=== PATIENT | female | born 1945 | race Caucasian/White ===

== ENCOUNTER 2017-01-17 17:05 | Inpatient (IN) | payer OTHER ==
[~2017-01-17] VITALS: Ht 160 cm; Wt 56.7 kg
--- NOTE | ~2017-01-17 | CNG ---
[facility] [place] [address] CYTO-NONGYN REPORT PROCEDURE Name: CRISTAL WARE Room #: 307-P DIS IN M.R.#: [id number] Admission: 01/17/17 Date of : 47 Discharge: 01/19/17 Report #: [id number] Path Case #: [id number] CYTOPATHOLOGY REPORT COLLECTION DATE: 01/18/2017 RECEIVED DATE: 01/19/2017 SUBMITTING PHYS: Dr. Dixon Johnson OTHER PHYS: Dr. Giorgi Crane CLINICAL HISTORY: UTI, AMS, Leukocytosis, Lung CA SPECIMEN(S) RECEIVED: A.Sputum * * * * * * * * * * * * FINAL DIAGNOSIS: A. Sputum: - No malignant cells identified. Pulmonary macrophages are present along with squamous cells and inflammatory cells in a background of debris. PATHOLOGIST: Rosa Maria Malcolm M.D. REPORT ELECTRONICALLY SIGNED BY: Rosa Maria Malcolm M.D. DATE/TIME: 01/20/2017 16:24 * * * * * * * * * * * * GROSS PATHOLOGY: A. Sputum: The specimen is submitted unfixed, labeled "Cristal Ware". Received by the Cytology Department is one mL of cloudy colorless fluid. One ThinPrep slide was prepared. (mm 01.19.2017) PLASTIC STRAIGHTENING ROLL OPERATOR(S): HENRIK Quach([facility]) INITIAL CPT CODE(S): A; 92774 Professional services performed by [facility] at [facility] [address], [place] [address] Technical services performed by [facility] at [address] [place] [address]., [address], [place] [address]. [facility] [address] [place] [address], [facility] [address] [place] [address] PHONE: [phone] [facility] [address] [place] [address] CYTO-NONGYN REPORT PROCEDURE Name: BERHANE WARELA Room #: 307-P DIS IN M.R.#: [id number] Admission: 01/17/17 Date of : 47 Discharge: 01/19/17 Report #: [id number] Path Case #: [id number] DIRECTOR: Jeremie Tavarez M.D. * * * END OF REPORT * * *
--- NOTE | ~2017-01-17 | S ---
[facility] [place] [address] SURGICAL PATH RPT PROCEDURE Name: CRISTAL WARE Room #: 307-P DIS IN M.R.#: [id number] Admission: 01/17/17 Date of : 47 Discharge: 01/19/17 Report #: [id number] Path Case #: [id number] PATHOLOGY REPORT COLLECTION DATE: 01/19/2017 RECEIVED DATE: 01/20/2017 SUBMITTING PHYS: Dr. Giorgi Crane OTHER PHYS: Dr. Jose Miguel Toussaint SPECIMEN(S) RECEIVED: A.Left adrenal mass * * * * * * * * * * * * FINAL DIAGNOSIS: Left adrenal mass, needle core biopsy: - METASTATIC ADENOCARCINOMA, FAVOR LUNG ORIGIN. (PLEASE SEE COMMENT) COMMENT: Examination shows a gland forming malignancy. Adrenal gland parenchyma (cortex or medulla) is not present in this sample. Immunohistochemical stains are performed based on the history of lung mass. (Block A1) CK7: strong membranous reactivity present CK20: non-reactive TTF-1: rare cells showing strong nuclear reactivity WT-1: non-reactive (high background staining) CDX-2: non-reactive ER: non-reactive The non-reactive immunohistochemical stains argue against a gastrointestinal origin or Mullerian origin for this neoplasm. The tumor most likely represents a metastatic adenocarcinoma of lung origin. Please correlate clinically. Co-review: Dr. Janet Haines Findings are telephoned to Dr. Norbert Massey's nurse at 10:35 a.m. on 01/24/17. (IUV:mgr; 01/24/2017) PATHOLOGIST: Rosa Maria Malcolm M.D. REPORT ELECTRONICALLY SIGNED BY: Rosa Maria Malcolm M.D. DATE/TIME: 01/24/2017 16:16 * * * * * * * * * * * * GROSS PATHOLOGY: Received in formalin labeled "Cristal Ware, left adrenal mass," are 5 distinct needle cores of crowe soft tissue ranging from 0.[address] [address] SURGICAL PATH RPT PROCEDURE Name: CRISTAL WARE Room #: [address] [place] [address] IN M.R.#: [id number] Admission: 01/17/17 Date of : 47 Discharge: 01/19/17 Report #: [id number] Path Case #: [id number] 1.5 cm in length, which are submitted entirely in cassette A1. (SNA; 01/20/2017) CLINICAL HISTORY: Adrenal mass INITIAL CPT CODE(S): A; 09003, 78633, 10941, 11205, 31492, 22409, 77637 Professional services performed by [facility] at [address] , [place] [address] Technical services performed by [facility] at [address] [place] [address], [facility] [address], [place] [address]. [facility] [address] [place] [address] PHONE: [phone] DIRECTOR: Jeremie Tavarez M.D. * * * END OF REPORT * * *
--- NOTE | ~2017-01-17 | EKG ---
[address] [place] [address] ELECTROCARDIOGRAM REPORT Name: CRISTAL WARE Room #: 307-P ADM IN M.R.#: [id number] Admission: 01/17/17 Attend Phys: Andrew Ordonez MD Discharge: Date of : 47 Report #: [id number] THIS REPORT FOR: //name// [facility] ED Test Date: 2017-01-17 Test Time: 17:55:39 Pat Name: CRISTAL WARE Department: Room: [facility] Gender: F Financial Services Officer: [id number] : 1945 Requested By: Geri Vazquez Order Number: [id number] MD: David Ruiz Measurements Intervals [place] Rate: 108 P: 76 IL: 151 QRS: 59 QRSD: 84 T: 63 QT: 315 QTc: 422 Interpretive Statements Sinus tachycardia Probable left atrial enlargement Probable anteroseptal infarct, old Baseline wander in lead(s) V1 Compared to ECG 02/25/2014 07:14:42 No significant change was found Electronically Signed On 01-18-2017 7:48:31 CDT by David Ruiz [email or web address] <ELECTRONICALLY SIGNED> By: David Ruiz MD, [facility] 01/18/17 0748 1755 1755 David Ruiz MD, [facility] /EPI
[~2017-01-17 17:05] MED LIST changes: -KEFLEX500 MG PO
[2017-01-17 17:06] VITALS: BP 119/73
[2017-01-17 18:13] LABS: HEMATOCRIT 40.7 % (37.0-47.0); HEMOGLOBIN 14.2 gm/dL (12.0-15.0); MANUAL DIFF YES; MCH 31.1 pg (26.0-34.0); MCHC 34.9 g/dL (28.0-37.0); PLATELET COUNT 471 thou/uL (150-400); RBC 4.57 mil/uL (4.20-5.00); RDW 13.3 % (10.5-14.5); WBC 13.4 thou/uL (4.0-11.0)
[2017-01-17 18:20] LABS: CALCIUM 9.9 mg/dL (8.5-10.1); CREATININE 0.8 mg/dL (0.6-1.0); POTASSIUM 4.4 mmol/L (3.5-5.1)
[2017-01-17 18:27] LABS: URINE BILIRUBIN 1+ (Negative); URINE BLOOD TRACE (Negative); URINE COLOR YELLOW; URINE GLUCOSE-RANDOM* NEGATIVE (Negative); URINE KETONES 2+ (Negative); URINE NITRITE NEGATIVE (Negative); URINE PROTEIN (DIPSTICK) NEGATIVE (Negative); URINE SPECIFIC GRAVITY <= 1.005 (1.003-1.035); URINE UROBILINOGEN 0.2 E.U./dl (0.2-1.0)
[2017-01-17 18:29] LABS: ICTOTEST (BILI CONFIRMATORY) Negative (Negative)
[2017-01-17 18:35] LABS: ABSOLUTE NEUTROPHILS 11.1 thou/uL (1.4-8.2); TOTAL CELL COUNT 100
[2017-01-17 18:45] LABS: CASTS None Seen /LPF (None Seen); SQUAMOUS 4-10 Moderate /LPF (0-3); URINE RBC 0-2 Rare /HPF (0-2); URINE WBC 6-15 Few /HPF (0-5)
[2017-01-17 18:46] LABS: CRYSTALS None Seen /LPF (None Seen)
[2017-01-17 19:55] VITALS: BP 155/77
[2017-01-17 20:05] VITALS: BP 148/74
[2017-01-18] VITALS: BP 152/82
[2017-01-18 04:37] LABS: HEMATOCRIT 40.3 % (37.0-47.0); HEMOGLOBIN 13.8 gm/dL (12.0-15.0); MCH 30.7 pg (26.0-34.0); MCHC 34.2 g/dL (28.0-37.0); MCV 89.6 fL (80.0-100.0); RBC 4.5 mil/uL (4.20-5.00); RDW 13.6 % (10.5-14.5); WBC 14.8 thou/uL (4.0-11.0)
[2017-01-18 04:53] LABS: CALCIUM 9.3 mg/dL (8.5-10.1); CREATININE 0.7 mg/dL (0.6-1.0); POTASSIUM 3.8 mmol/L (3.5-5.1)
[2017-01-18 08:07] VITALS: BP 151/70
[2017-01-18 10:56] LABS: APTT 27.3 Seconds (24.5-32.8); INR 1.1; PROTIME 11.4 Seconds (9.3-11.4)
[2017-01-18 15:40] VITALS: BP 139/68
[2017-01-18 19:50] VITALS: BP 128/78
[2017-01-19] VITALS (13 sets, daily range): BP systolic 132–154; BP diastolic 48–83
[2017-01-19 04:04] LABS: CALCIUM 8.4 mg/dL (8.5-10.1); CREATININE 0.6 mg/dL (0.6-1.0); POTASSIUM 3.1 mmol/L (3.5-5.1)
[2017-01-19 04:22] LABS: HEMATOCRIT 36.2 % (37.0-47.0); HEMOGLOBIN 12.1 gm/dL (12.0-15.0); MCH 30.3 pg (26.0-34.0); MCHC 33.4 g/dL (28.0-37.0); MCV 90.8 fL (80.0-100.0); RBC 3.99 mil/uL (4.20-5.00); RDW 13.6 % (10.5-14.5); WBC 11.3 thou/uL (4.0-11.0)
[2017-01-19] MEDS ORDERED: KEFLEX500 MG PO (14:39)
== END 2017-01-19 17:00 | disposition home or self-care (01) | DRG 871 ==
LOC: ER 17:05 → 3N 19:35 → EROBS 19:35 → 3N 19:55
PROVIDERS: Emergency Medicine; Hospitalist; Internal Medicine Hematology & Oncology; Nurse Practitioner Acute Care
PROC: 0GB23ZX Excision of Left Adrenal Gland, Percutaneous Approach, Diagnostic (ICD-10-PCS; principal; 2017-01-19)
DX: A41.9 Sepsis, unspecified organism (principal); G92 Toxic encephalopathy; N39.0 Urinary tract infection, site not specified; E87.1 Hypo-osmolality and hyponatremia; I10 Essential (primary) hypertension; E05.90 Thyrotoxicosis, unspecified without thyrotoxic crisis or storm; F32.9 Major depressive disorder, single episode, unspecified; F41.9 Anxiety disorder, unspecified; E78.00 Pure hypercholesterolemia, unspecified; F17.210 Nicotine dependence, cigarettes, uncomplicated; K90.0 Celiac disease; E78.5 Hyperlipidemia, unspecified; E27.9 Disorder of adrenal gland, unspecified; R91.8 Other nonspecific abnormal finding of lung field; Z79.899 Other long term (current) drug therapy; Z88.1 Allergy status to other antibiotic agents; Z88.6 Allergy status to analgesic agent; Z88.8 Allergy status to other drugs, medicaments and biological substances; Z80.8 Family history of malignant neoplasm of other organs or systems; Z82.5 Family history of asthma and other chronic lower respiratory diseases; Z82.49 Family history of ischemic heart disease and other diseases of the circulatory system; Z90.710 Acquired absence of both cervix and uterus; Z81.1 Family history of alcohol abuse and dependence
CPT/HCPCS: 10096

== ENCOUNTER → 2017-01-17 | Outpatient (CLI) | payer OTHER ==
[~2017-01-17] MED LIST: ATORVASTATIN CA40 MG PO; BENTYL20 MG PO; CIMETIDINE 400400 MG PO; DICLOFENAC SOD50 M1 PO; FLONASE 0.05%50 MCG NASAL; HYDROCHLOROTHIA25 M1 PO; KEFLEX500 MG PO; METHIMAZOLE5 MG PO; NORVASC10 MG PO; NORVASC5 MG PO; OMEPRAZOLE20 M1 PO; ONDANSETRON HCL4 M2 SUBLING; PRILOSEC40 MG PO; PROMS25 WY RECTAL; QUINAPRIL HCL20 MG PO; QUINU10 PD PO; REGLAN 10 MG TA10 MG PO; TIGAN300 MG PO; TRAMADOL 50 MG50 MG PO; XANAX 0.5 MG0.5 MG PO
== END ==
LOC: CAT 07:53
DX: E27.9 Disorder of adrenal gland, unspecified (principal); J92.9 Pleural plaque without asbestos

== ENCOUNTER 2017-04-05 04:36 | Inpatient (IN) | payer OTHER ==
[~2017-04-05] VITALS: Ht 165.1 cm; Wt 50.8 kg
--- NOTE | ~2017-04-05 | H ---
[facility] [place] [address] HISTORY AND PHYSICAL Name: CRISTAL WARE Room #: 436-P ADM IN M.R.#: [id number] Admission: 04/07/17 Attend Phys: Taco Garcia DO Discharge: Date of : 47 Report #: [id number] THIS REPORT FOR: //name// CC: Taco Lebron DATE OF SERVICE: 04/08/2017 ROOM NUMBER: 436-P. DIAGNOSIS: Stage IV adenocarcinoma of lung origin. HISTORY: Radiation Oncology consultation is requested by Dr. Jose Miguel Toussaint in this 71-year-old female with a recent diagnosis of stage IV adenocarcinoma of primary lung origin. She initially presented to the hospital earlier this summer with shortness of air, mental status changes and a urinary tract infection. A lung mass was noted on chest x-ray. CT scan revealed a large right upper lung mass, extending to the right hilum, with mediastinal lymphadenopathy as well as a large left adrenal mass. The left adrenal gland was biopsied on 01/19/2017 and found to be adenocarcinoma, favoring lung origin. The patient has seen Dr. Toussaint, and received her first cycle of chemotherapy -- Alimta, carboplatin and Keytruda 2 weeks ago. She began to experience increasing back pain around her midline which has rendered her bedridden for the past couple of weeks. The pain is a 10/10 without medication and not well-controlled. She also has been having difficulty with mental status side effects from pain medication, and the patient was admitted to the hospital for pain management as well as an inability to be home independently. A followup MRI of the brain revealed a 5 x 5 x 6 mm ring enhancing lesion in the right frontal lobe, 3 x 3 x 4 nodule within the inferior left cerebellar hemisphere, and 10 x 13 x 16 mm posterior paramedial right parietal lobe metastasis which had increased in size from her prior exam on 01/18/2017. In addition, CT of the spine revealed the right upper lobe mass and left adrenal gland mass. No definite lytic or sclerotic mass identified. However, MR of the lumbar spine revealed a soft tissue mass involving the posterior spinal muscles at L2, left-sided marrow replacement at L1 and a second area of replacement involving L5. Due to the findings in the paraspinal muscle, L1 and increasing brain metastasis, we are asked to see the patient at this time for discussion regarding radiation therapy. She currently describes her pain present 24/01. It is exacerbated by moving and is a 10+/10 without pain medication. It is reduced to a 5-6/10 with pain medication. Her most comfortable position is lying on her left side. She denies any radicular pain into her buttock or legs. She has generalized global weakness from lying in bed, but no specific muscle weakness. No sensory loss. PAST MEDICAL AND SURGICAL HISTORY: Hypertension, hyperthyroidism, depression, anxiety, hyperlipidemia, celiac sprue. [address] [address] HISTORY AND PHYSICAL Name: CRISTAL WARE Room #: 436-P [facility] IN M.R.#: [id number] Admission: 04/07/17 Attend Phys: Taco Garcia DO Discharge: Date of : 47 Report #: [id number] CURRENT MEDICATIONS: Please see chart. SOCIAL HISTORY: The patient has moved in with her daughter, Eliud. Her daughter does work full-time, Tuesday through Tuesday. She is alone for several hours per day. The patient is a former smoker. FAMILY HISTORY: Father, pancreatic cancer. REVIEW OF SYSTEMS: Twelve-point review of systems is reviewed and is otherwise negative. PHYSICAL EXAMINATION: VITAL SIGNS: Per chart. GENERAL: The patient is alert and oriented; lying on her left side, relatively comfortably in bed. She is able to answer questions appropriately. She is mildly confused. NECK: Without lymphadenopathy. LUNGS: Clear to auscultation without wheezes. CARDIOVASCULAR: Regular rate and rhythm without murmur. No premature beats. ABDOMEN: Soft, nontender. No masses or organomegaly. MUSCULOSKELETAL: Point tenderness over the upper lumbar region. NEUROLOGIC: Cranial nerves intact. She is able to move all 4 extremities. No sensory loss. Gait is not tested. SKIN: No unusual bruises or rashes. RADIOGRAPHIC DATA: Please see above, indicating results of MRI of her spine, noting a large tumor involving the left side of L1 with bony destruction and a smaller lesion involving the upper anterior L5 as well as the posterior left paraspinous tissue mass measuring 2.2 x 3.2 x 3.9 cm. MRI of the brain notes 3 enhancing lesions, 2 of which are new and 1 has increased in size, in the posterior right parietal lobe. RECOMMENDATIONS: Her main reason for admission is her uncontrolled pain, which correlates well with her L1 metastasis. PLAN: I would recommend palliative radiation therapy to L1. We would consider a hypofractionation, 800 cGy x 1 fraction to the spine and also consider SRS to the enlarging right parietal brain intracranial lesion. This would need to be done as an outpatient or in an inpatient facility that has radiation therapy available. We discussed the indications, risks, benefits, and side effects of radiation with the patient and her daughter. They will consider her options over the weekend and I will revisit this with them early next week. [address] [address] HISTORY AND PHYSICAL Name: CRISTAL WARE Room #: 436-P ADM IN M.R.#: [id number] Admission: 04/07/17 Attend Phys: Taco Garcia DO Discharge: Date of : 47 Report #: [id number] Thanks for the opportunity to see the patient in consultation. By: 1459 1605 Danni Saldana MD /abdoulaye
--- NOTE | ~2017-04-05 | EKG ---
[address] [place] [address] ELECTROCARDIOGRAM REPORT Name: CRISTAL WARE Room #: 447-P [facility]..#: [id number] Admission: 04/05/17 Attend Phys: Taco Garcia DO Discharge: Date of : 47 Report #: [id number] THIS REPORT FOR: //name// [facility] ED Test Date: 2017-04-05 Test Time: 04:42:53 Pat Name: CRISTAL WARE Department: Room: [facility] Gender: F Water Softener Servicer: MAURA : 1945 Requested By: Easton Bashir Order Number: [id number] MD: David Ruiz Measurements Intervals [place] Rate: 97 P: 92 [place]: 143 QRS: 74 QRSD: 88 T: 74 QT: 343 QTc: 436 Interpretive Statements Sinus rhythm Borderline repolarization abnormality Baseline wander in lead(s) V6 Compared to ECG 01/17/2017 17:55:39 Sinus tachycardia no longer present Electronically Signed On 04-05-2017 8:41:56 CDT by David Ruiz [email or web address] <ELECTRONICALLY SIGNED> By: David Ruiz MD, [facility] 04/05/17 0841 0442 044 David Ruiz MD, [facility] /EPI
--- NOTE | ~2017-04-05 | HC ---
[facility] [place] [address] CONSULTATION Name: CRISTAL WARE Room #: 447-P [facility] M.R.#: [id number] Admission: 04/05/17 Attend Phys: Taco Garcia DO Discharge: Date of : 47 Report #: [id number] THIS REPORT FOR: //name// CC: Aaliyah Smith MD HISTORY OF PRESENT ILLNESS: The patient is a 71-year-old female with a history of metastatic adenocarcinoma of the lung, who was diagnosed with a left adrenal biopsy on 01/19/2017. The tumor was nonreactive for ROS, ALK and EGFR. Also, BRAF and PD-L1 was less than 1%. A PET scan done on 02/02 had showed the hypermetabolic right upper lobe pulmonary mass as well as hypermetabolic precarinal lymph nodes and large hypermetabolic left adrenalin mass and also hypermetabolic nodule within the left lateral breast and also small hypermetabolic lesion on the left side of L1. The patient began chemotherapy with carboplatin, pembrolizumab and pemetrexed 2 weeks ago or about 03/18/2017. The patient comes in today for worsening pain over the last several weeks. She states back pain that is constant, it is worse, it is about mid ridge. She has not had any incontinence of stool or urine. She does state if she does not get to this bathroom fast, she can lose control, but she is aware that she has to go. She denies any change in bowels, any nausea, any vomiting, any fevers, any rash, any arm or leg swelling. Does have some trouble sleep because of the pain. Has been in-taking more pain pills. Her eating has been okay. She has been drinking okay also. She has not had any stumbling. She also has pain in the mid epigastric region. She states the pain is straight through in that area. PAST MEDICAL HISTORY: Notable for the nonsmall cell lung cancer, also UTI history, also hypertension, tobacco use, hypothyroidism, history of celiac sprue. Also note that she had some mental status changes, an MRI head in January was suggesting for a repeat scan in 6-8 weeks. Also, she has a history of GERD, hypertension and hyperlipidemia. MEDICATIONS: Medications at this time in the hospital currently include GI cocktail to see if this helps her GI pain. Docusate 100 b.i.d., famotidine 20 b.i.d., mag citrate daily as needed, zolpidem 5 mg at bedtime p.r.n. MiraLax daily, nitroglycerin sublingual p.r.n., IV fluids, Zofran p.r.n. PHYSICAL EXAMINATION: GENERAL: The patient appears her stated age. VITAL SIGNS: Height is 5 feet 5 or 165.1 cm, weight 120 pounds or 54.4 kilograms. Blood pressure 111/60, pulse 75, O2 sat 96, temperature afebrile at 98.2. MOOD: The patient is tired from not sleeping last night. She is able to answer [facility] [place] [address] CONSULTATION Name: CRISTAL WARE Room #: 447-P [facility] Osbaldo M.R.#: [id number] Admission: 04/05/17 Attend Phys: Taco Garcia, DO Discharge: Date of : 47 Report #: [id number] questions, appears to be a reliable historian. HEENT: Oral is clear without injection or masses. LUNGS: Appears to have good symmetric respirations. HEART: Appears regular rate. NECK: No enlarged lymph nodes in the supraclavicular, cervical range. BACK: The patient does have the back pain about T10 level that is slightly worse when you compress the back and also rub that, but also maybe the muscle tight over this. She also has a similar discomfort in the front of the epigastrium, but I think it is for the same pain. ABDOMEN: Feels fairly soft, does not feel distended or any masses. EXTREMITIES: Without clubbing or cyanosis, or perhaps some trace edema. LABORATORY DATA: Lab here shows a CBC with a white count of 3.7, hemoglobin 10, platelets 117. Coags normal. CMP: Albumin at 2.3, total protein 5.2. ALT 24, magnesium 1.7, AST 23. Glucose 114, sodium 130. Portable chest showed hyperexpansion with minor stranding. ASSESSMENT AND PLAN: 1. 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 Continue monitoring and surveillance. 2. Increasing back pain, may be related to either the adrenal mass enlarging or to L1 metastasis. No plans for an MRI spine, which seems appropriate to make sure this is not L1 expansion or new a metastasis since PET scan almost 2 months ago. Continue with pain meds as needed, may need to consider radiation therapy to adrenal if pain becomes major issue. 3. Hypertension. Meds per others. 4. Hyperlipidemia. Meds per others. 5. Hypothyroidism. Meds per others. 6. History of sprue. Defer to others. 7. Questionable MRI abnormality. We will probably need to repeat an MRI at some point to follow up on changes seen 2 months ago. We will follow with you. <ELECTRONICALLY SIGNED> By: Jose Miguel Toussaint MD 04/06/17 0703 0854 1116 Jose Miguel Toussaint MD /nt
--- NOTE | ~2017-04-05 | HC ---
[facility] [place] [address] CONSULTATION Name: CRISTAL WARE Room #: 436-P [facility] MPalmiraRPalmira#: [id number] Admission: 04/05/17 Attend Phys: Taco Garcia DO Discharge: Date of : 47 Report #: [id number] THIS REPORT FOR: //name// CC: Taco Lebron DATE OF SERVICE: 04/06/2017 HISTORY OF PRESENT ILLNESS: The patient is a 71-year-old white female with history of stage IV adenocarcinoma of the lung who completed her first round of chemotherapy approximately 2 weeks ago. The patient has had worsening lower extremity weakness. She indicates that over the past month or so, she has been unable to progressively ambulate and her daughter has been pushing her around in her 4-wheeled roller walker. With her worsening condition, she was admitted and workup has revealed vertebral metastasis to L1 and L5 as well as metastasis to the adrenal. No actual spinal cord encroachment. The patient is being followed by Oncology. We are seeing her in Rehabilitation Medicine consultation. PAST MEDICAL HISTORY: Includes the metastatic adenocarcinoma. She has history of hypertension, hyperthyroidism, depression, anxiety, high cholesterol, celiac sprue. PAST SURGICAL HISTORY: As noted above. FAMILY HISTORY: Father had pancreatic cancer. Father also had COPD, history of alcoholism. HABITS: The patient is a former tobacco user, 40-pack years. No history of alcohol abuse. MEDICATIONS: Please see the full medication listing. SOCIAL HISTORY: Lives in the house with her daughter. They have a stair glide. She apparently is alone about 5 hours a day. REVIEW OF SYSTEMS: Complains of back pain and has decreased tolerance for activity. No complaints of chest pain, shortness of breath or abdominal discomfort. PHYSICAL EXAMINATION: GENERAL: A 71-year-old white female in no obvious distress. She indicated she does not like to be pushed very much as far as any kind of therapies or activity. VITAL SIGNS: Last recorded temperature is 97.1, pulse 81, respirations 19, blood pressure 123/67. HEENT: Facies are symmetric. [address] [address] CONSULTATION Name: CRISTAL WARE Room #: 436-P [facility] M.R.#: [id number] Admission: 04/05/17 Attend Phys: Taco Garcia DO Discharge: Date of : 47 Report #: [id number] EXTREMITIES: She has functional range of motion of both upper extremities without obvious focal weakness. DTRs are trace to 1. Lower extremities. No obvious calf swelling. Functional range of motion, strength is probably at grade 3+/5 to 4-/5. DTRs are trace to 1. She is mod assist for bed mobility. Sit to stand is mod assist. Gait was 10 feet with the front wheeled walker. ASSESSMENT: A 71-year-old white female with the following problem list: 1. Metastatic stage 4 adenocarcinoma of the lung to the L1 and L5 vertebra. 2. 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 3. Low back pain with limited tolerance to activity. 4. Hypertension. 5. History of tobacco abuse. PLAN: Social service notes reviewed. Note that they are looking at nursing facility options, which would appear appropriate for this patient. She does not have good tolerance as far as therapies and does not want to be pushed. She made that quite clear to me today. I agree with checking regarding residential facility options within the patient's insurance. By: [id number] Mario Trujillo MD /PMT
[~2017-04-05 04:36] MED LIST changes: +KEFLEX500 MG PO
[2017-04-05 04:37] VITALS: BP 93/47
[2017-04-05] MEDS ORDERED: FOLIC ACID1 MG PO (04:55)
[2017-04-05] MEDS ORDERED: NORCO 5-325 TA1 EACH PO (04:56)
[2017-04-05] MEDS ORDERED: MIRALAX17 GM PO (04:57)
[2017-04-05] MEDS ORDERED: POTASSIUM20 PO (04:58)
[2017-04-05] MEDS ORDERED: COMPAZINE10 MG PO (04:58)
[2017-04-05 05:13] LABS: ABSOLUTE NEUTROPHILS 2.7 thou/uL (1.4-8.2); BASOPHILS 0.1 % (0.0-2.0); EOSINOPHILS 0.2 % (0.0-3.0); HEMATOCRIT 28.3 % (37.0-47.0); LYMPHOCYTES 15.9 % (24.0-44.0); MCH 32.2 pg (26.0-34.0); MCHC 35.3 g/dL (28.0-37.0); MCV 91.3 fL (80.0-100.0); MONOCYTES 10.4 % (1.0-8.0); PLATELET COUNT 117 thou/uL (150-400); POLYS 73.4 % (36.0-66.0); RDW 13.4 % (10.5-14.5); WBC 3.7 thou/uL (4.0-11.0)
[2017-04-05 05:18] LABS: MANUAL DIFF NO
[2017-04-05 05:24] LABS: ANION GAP 7 mmol/L (7-16); BUN 15 mg/dL (7-18); CALCIUM 8.2 mg/dL (8.5-10.1); CHLORIDE 98 mmol/L (98-107); CO2 25 mmol/L (21-32); CREATININE 0.6 mg/dL (0.6-1.0); GLUCOSE 114 mg/dL (74-106); POTASSIUM 3.4 mmol/L (3.5-5.1); SODIUM 130 mmol/L (136-145)
[2017-04-05 05:28] LABS: APTT 23.8 Seconds (24.5-32.8); INR 1.1; PROTIME 11.3 Seconds (9.3-11.4)
[2017-04-05 05:33] LABS: ALBUMIN 2.3 g/dL (3.4-5.0); ALKALINE PHOSPHATASE 107 U/L (46-116); MAGNESIUM 1.7 mg/dL (1.8-2.4); SGOT 23 U/L (15-37); SGPT 24 U/L (30-65); TOTAL BILIRUBIN 0.6 mg/dL (<0.1-1.0); TOTAL PROTEIN 5.2 g/dL (6.4-8.2); TROPONIN-I < 0.04 ng/mL (<0.04-0.07)
[2017-04-05 06:57] VITALS: BP 109/50
[2017-04-05 06:58] VITALS: BP 111/60
[2017-04-05 08:00] VITALS: BP 106/54
[2017-04-05 16:00] VITALS: BP 109/46
[2017-04-05 19:08] VITALS: BP 94/52
[2017-04-06 00:04] VITALS: BP 128/66
[2017-04-06 05:11] VITALS: BP 125/61
[2017-04-06 08:00] VITALS: BP 123/67
[2017-04-06 16:23] VITALS: BP 112/61
[2017-04-06 22:30] VITALS: BP 125/65
[2017-04-07 03:37] VITALS: BP 128/56
[2017-04-07 08:00] VITALS: BP 134/64
[2017-04-07 08:02] VITALS: BP 134/64
[2017-04-07 16:18] VITALS: BP 98/60
[2017-04-07 16:20] VITALS: BP 116/58
[2017-04-07 19:40] VITALS: BP 113/54
[2017-04-08 04:30] VITALS: BP 114/53
[2017-04-08 06:13] LABS: HEMATOCRIT 28.7 % (37.0-47.0); HEMOGLOBIN 9.9 gm/dL (12.0-15.0); MCH 31.7 pg (26.0-34.0); MCHC 34.4 g/dL (28.0-37.0); MCV 92.2 fL (80.0-100.0); PLATELET COUNT 150 thou/uL (150-400); RBC 3.11 mil/uL (4.20-5.00); RDW 13.9 % (10.5-14.5); WBC 2.7 thou/uL (4.0-11.0)
[2017-04-08 06:18] LABS: MANUAL DIFF YES
[2017-04-08 06:28] LABS: CALCIUM 8.4 mg/dL (8.5-10.1); CREATININE 0.4 mg/dL (0.6-1.0); POTASSIUM 3.9 mmol/L (3.5-5.1)
[2017-04-08 07:34] VITALS: BP 124/55
[2017-04-08 08:58] LABS: ABSOLUTE NEUTROPHILS 2.1 thou/uL (1.4-8.2); PLATELET ESTIMATE NORMAL; TOTAL CELL COUNT 100
[2017-04-08 16:45] VITALS: BP 101/44
[2017-04-08 19:53] VITALS: BP 110/48
[2017-04-09 03:45] VITALS: BP 110/57
[2017-04-09 08:00] VITALS: BP 130/67
[2017-04-09 16:00] VITALS: BP 119/55
[2017-04-09 19:35] VITALS: BP 127/54
[2017-04-10 04:13] VITALS: BP 94/49
[2017-04-10 07:52] VITALS: BP 109/49
[2017-04-10 16:25] VITALS: BP 91/49
[2017-04-10 17:26] VITALS: BP 114/54
[2017-04-10 19:34] VITALS: BP 102/54
[2017-04-11 04:13] VITALS: BP 120/64
[2017-04-11 04:51] VITALS: BP 134/71
[2017-04-11 08:00] VITALS: BP 129/63
== END 2017-04-11 15:41 | disposition short-term general hospital (02) | DRG 643 ==
LOC: ER 04:36 → EROBS 06:07 → 4S 06:07
PROVIDERS: Emergency Medicine; Family Medicine
DX: C79.70 Secondary malignant neoplasm of unspecified adrenal gland (principal); E43 Unspecified severe protein-calorie malnutrition; C34.90 Malignant neoplasm of unspecified part of unspecified bronchus or lung; C79.51 Secondary malignant neoplasm of bone; Z68.1 Body mass index [BMI] 19.9 or less, adult; C79.31 Secondary malignant neoplasm of brain; I10 Essential (primary) hypertension; E03.9 Hypothyroidism, unspecified; Z51.5 Encounter for palliative care; K21.9 Gastro-esophageal reflux disease without esophagitis; M54.9 Dorsalgia, unspecified; G89.29 Other chronic pain; D64.9 Anemia, unspecified; F32.9 Major depressive disorder, single episode, unspecified; F41.9 Anxiety disorder, unspecified; E78.00 Pure hypercholesterolemia, unspecified; Z88.6 Allergy status to analgesic agent; Z88.1 Allergy status to other antibiotic agents; Z88.8 Allergy status to other drugs, medicaments and biological substances; Z80.0 Family history of malignant neoplasm of digestive organs; Z82.5 Family history of asthma and other chronic lower respiratory diseases; Z81.1 Family history of alcohol abuse and dependence; Z82.49 Family history of ischemic heart disease and other diseases of the circulatory system; Z87.891 Personal history of nicotine dependence; Z79.899 Other long term (current) drug therapy; Z90.710 Acquired absence of both cervix and uterus
CPT/HCPCS: 10102